=== PATIENT | male | born 1980 | race Caucasian/White ===

== ENCOUNTER 2017-04-14 10:23 | Emergency (ER) | payer MEDICAID ==
[~2017-04-14] VITALS: Ht 170.2 cm; Wt 85.0 kg
[2017-04-14] MEDS ORDERED: SULF-168 PO (10:31)
[2017-04-14] MEDS ORDERED: IBUP-2070 PO (10:31)
[2017-04-14] MEDS ORDERED: BACITRACIN 0.9 GM PACKET OINTMENT TP ONE (10:45)
[2017-04-14] MEDS ORDERED: LIDOCAINE HCL/PF 1% 2 ML VIAL IM ONE (10:45)
[2017-04-14] MEDS ORDERED: CefTRIAXone SODIUM 1 GM/VIAL IM ONE (10:45)
[2017-04-14 10:51] LABS: GLUCOSE,POINT OF CARE 100 MG/DL (70-110)
[2017-04-14 11:44] VITALS: BP 118/86
== END 2017-04-14 11:45 | disposition home or self-care (01) ==
LOC: EMS 10:26
DX: L03.115 Cellulitis of right lower limb (principal); S91.301A Unspecified open wound, right foot, initial encounter; X58.XXXA Exposure to other specified factors, initial encounter; Y93.89 Activity, other specified; Y92.89 Other specified places as the place of occurrence of the external cause; Y99.8 Other external cause status
CPT/HCPCS: 82948; 82962; 96372; 99284; J0696; J3490

== ENCOUNTER 2018-11-22 18:51 | Emergency (ER) | payer MEDICAID ==
[~2018-11-22] VITALS: Ht 167.6 cm; Wt 85.0 kg
[~2018-11-22 18:51] MED LIST: IBUP-2070 PO; SULF1TAB3 PO
[2018-11-22] MEDS ORDERED: NYSTATIN 15 GM POWDER BOTTLE TP ONE (20:45)
[2018-11-22 21:04] VITALS: BP 119/80
== END 2018-11-22 21:07 | disposition home or self-care (01) ==
LOC: EMS 18:55
DX: B35.3 Tinea pedis (principal)

== ENCOUNTER 2021-04-13 00:16 | Emergency (ER) | payer MEDICAID ==
[~2021-04-13] VITALS: Ht 167.6 cm; Wt 68.2 kg
[2021-04-13] MEDS ORDERED: RISP1TAB48 PO (00:28)
[2021-04-13 06:10] LABS: AMPHET/METH SCREEN,URINE POSITIVE (NEGATIVE); BARBITURATE SCREEN, URINE NEGATIVE (NEGATIVE); BENZODIAZEPINES SCREEN,URINE NEGATIVE (NEGATIVE); CANNABINOID SCREEN,URINE NEGATIVE (NEGATIVE); COCAINE SCREEN,URINE NEGATIVE (NEGATIVE); METHADONE SCREEN, URINE NEGATIVE (NEGATIVE); OPIATE SCREEN,URINE NEGATIVE (NEGATIVE)
[2021-04-13 06:11] LABS: PHENCYCLIDINE SCREEN,URINE NEGATIVE (NEGATIVE)
[2021-04-13] MEDS ORDERED: LORazepam 2 MG TABLET PO ONE (06:30)
[2021-04-13 06:46] VITALS: BP 126/62
== END 2021-04-13 08:15 | disposition home or self-care (01) ==
LOC: EMS 00:17
DX: F41.9 Anxiety disorder, unspecified (principal); F15.10 Other stimulant abuse, uncomplicated; F17.210 Nicotine dependence, cigarettes, uncomplicated; F20.9 Schizophrenia, unspecified
CPT/HCPCS: 99283

== ENCOUNTER 2021-04-14 12:07 | Emergency (ER) | payer MEDICAID ==
[~2021-04-14] VITALS: Ht 167.6 cm; Wt 77.0 kg
[~2021-04-14 12:07] MED LIST changes: -IBUP-2070 PO; +RISP1TAB48 PO; -SULF1TAB3 PO
[2021-04-14 12:15] VITALS: BP 122/81
== END 2021-04-14 13:38 | disposition left against medical advice (07) ==
LOC: EMS 12:07
DX: R45.851 Suicidal ideations (principal); Z53.21 Procedure and treatment not carried out due to patient leaving prior to being seen by health care provider